=== PATIENT | male | born 1940 | race Caucasian/White ===

== ENCOUNTER 2019-11-06 13:09 | Emergency (ER) | payer SELFPAY ==
[~2019-11-06] VITALS: Ht 190.5 cm; Wt 113.4 kg
[2019-11-06] MEDS ORDERED: KETOROLAC TROMETH 60MG/2ML VIAL IM ONE (13:45)
[2019-11-06 14:20] LABS: Basophils # (auto) 0 uL; Basophils % (auto) 0.1 % (0.0-2.0); Eosinophils # (auto) 0 uL; Lymphocytes # (auto) 0.7 uL; Neutrophils # (auto) 3.9 uL
[2019-11-06 14:22] LABS: Hemoglobin 13.6 g/dL (13.5-17.5); Lymphocytes % (auto) 14.3 % (10.0-50.0); Mean Corpuscular Hemoglobin 34.7 pg (28.0-32.0); Monocytes # (auto) 0.3 uL; Monocytes % (auto) 6.5 % (0.0-12.0); Neutrophils % (auto) 79.1 % (37.0-80.0); Platelet Count (auto) 253 10^3/uL (140-450); Red Blood Cells 3.92 10^6/uL (4.5-5.90); Red Cell Distribution Width 13.1 % (11.8-14.3); White Blood Cell 4.9 10^3/uL (4.4-10.8)
[2019-11-06 14:37] LABS: Albumin 3.2 g/dL (3.4-5.0); Calcium 8.9 mg/dL (8.5-10.1)
[2019-11-06 14:42] LABS: Total Protein 8.8 g/dL (6.4-8.2)
[2019-11-06 14:55] LABS: Potassium 3.6 mmol/L (3.5-5.1)
[2019-11-06 15:14] VITALS: BP 149/75
== END 2019-11-06 16:45 | disposition home or self-care (01) ==
LOC: EDBD 13:09 → ER 13:09
DX: M51.37 Other intervertebral disc degeneration, lumbosacral region (principal); E46 Unspecified protein-calorie malnutrition; F12.10 Cannabis abuse, uncomplicated
CPT/HCPCS: 36415; 72100; 80053; 84484; 85025; 96372; 99284; J1885

== ENCOUNTER 2024-01-11 13:18 | Emergency (ER) | payer OTHER | END 2024-01-11 14:59 | disposition left against medical advice (07) | LOC: ER 13:18 → EDBD 13:18 → ER 14:59 | DX: R53.1 Weakness (principal); Z53.21 Procedure and treatment not carried out due to patient leaving prior to being seen by health care provider ==